=== PATIENT | female | born 1975 | race Caucasian/White ===

== ENCOUNTER → 2020-12-10 | Outpatient (CLI) | payer OTHER ==
--- NOTE | 2020-12-10 12:09 | US ---
EXAMINATION TYPE: US transvaginal DATE OF EXAM: 12/10/2020 COMPARISON: NONE CLINICAL HISTORY: N92.6 irregular periods. TECHNIQUE: Transvaginal (TV). Date of LMP: EXAM MEASUREMENTS: Uterus: 10.1 x 5.3 x 5.4 cm Endometrial Stripe: 0.9 cm Right Ovary: 2.5 x 2.0 x 1.9 cm Left Ovary: Obscured by overlying bowel gas 1. Uterus: Nabothian cysts noted, probable fibroid measuring 3.4 x 2.9 x 2.4cm, heterogeneous 2. Endometrium: somewhat heterogeneous 3. Right Ovary: wnl 4. Left Ovary: Obscured by overlying bowel gas 5. Bilateral Adnexa: wnl 6. Posterior cul-de-sac: wnl IMPRESSION: 1. Suspected fibroid posterior body of the uterus
== END | disposition home or self-care (01) ==
LOC: RADUSWWP 07:31
PROVIDERS: ATTEND Family Medicine
DX: N92.6 Irregular menstruation, unspecified (principal)
CPT/HCPCS: 76830